=== PATIENT | male | born 1935 | race Native Hawaiian/Other Pacific Islander ===

== ENCOUNTER 2018-02-25 20:28 | Emergency (ER) | payer OTHER ==
[~2018-02-25] VITALS: Ht 188 cm; Wt 96.6 kg
[2018-02-25 20:51] LABS: PLATELET COUNT 259 K/uL (142-355)
[2018-02-25 20:56] LABS: POTASSIUM 4.3 mmol/L (3.6-5.2)
[2018-02-25 21:30] VITALS: BP 135/61; TEMP 98.3
[2018-02-26] MEDS ORDERED: ESCITALOPRAM5 MG PO (05:33)
[2018-02-26] MEDS ORDERED: NAMZARIC 28-101 CAP PO (05:39)
[2018-02-26] MEDS ORDERED: LOSA50TA PO (05:41)
[2018-02-26] MEDS ORDERED: AMLODIPINE BESYLATE PO (05:45)
[2018-02-26] MEDS ORDERED: QUET25TA2 PO (05:56)
[2018-02-26] MEDS ORDERED: PSYL0.52C PO (05:57)
[2018-02-26] MEDS ORDERED: TRADJENTA5 M1 PO (06:02)
[2018-02-26] MEDS ORDERED: OMEPRAZOLE20.6 MGDR PO (06:28)
[2018-02-26] MEDS ORDERED: NOVOLOG100 MG/ML SC (06:31)
[2018-02-26] MEDS ORDERED: LIPITOR40 MG PO (06:32)
[2018-02-26] MEDS ORDERED: GEMFIBROZIL PO (06:36)
[2018-02-26] MEDS ORDERED: METF500T PO (06:37)
[2018-02-26] MEDS ORDERED: GLIM2TAB PO (06:38)
[2018-02-26] MEDS ORDERED: CARV12.5 PO (06:48)
== END 2018-02-25 21:30 | disposition other institution (70) ==
LOC: ED 20:28
DX: Z04.6 Encounter for general psychiatric examination, requested by authority (principal); F31.89 Other bipolar disorder
CPT/HCPCS: 36415; 80053; 80307; 81000; 83735; 84100; 85027; 93005; 99285

== ENCOUNTER 2019-01-16 15:30 | Emergency (ER) | payer OTHER ==
[~2019-01-16] VITALS: Ht 188 cm; Wt 103.4 kg
[~2019-01-16 15:30] MED LIST: AMLODIPINE BESYLATE PO; CARV12.5 PO; ESCI10TA PO; ESCITALOPRAM5 MG PO; GEMFIBROZIL PO; GLIM2TAB PO; LIPITOR40 MG PO; LOSA50TA PO; METF500T PO; NAMZARIC 28-101 CAP PO; NOVOLOG100 MG/ML SC; OMEPRAZOLE20.6 MGDR PO; PSYL0.52C PO; QUET25TA2 PO; RISP1TAB PO; TRADJENTA5 M1 PO
[2019-01-16 16:09] LABS: PLATELET COUNT 261 K/uL (142-355)
[2019-01-16 16:34] LABS: POTASSIUM 3.8 mmol/L (3.6-5.2); SODIUM 142 mmol/L (136-145)
[2019-01-16 17:15] VITALS: BP 130/56; TEMP 97.8
[2019-01-16] MEDS ORDERED: TRADJENTA5 M1 PO (18:17)
[2019-01-16] MEDS ORDERED: FENOFIBRATE54 MG PO (18:18)
[2019-01-16] MEDS ORDERED: FINGERSTIX (18:20)
== END 2019-01-16 17:15 | disposition other institution (70) ==
LOC: ED 15:30
PROVIDERS: Emergency Medicine
DX: R46.89 Other symptoms and signs involving appearance and behavior (principal); D64.89 Other specified anemias; Z04.6 Encounter for general psychiatric examination, requested by authority
CPT/HCPCS: 80053; 81000; 85027; 93005; 99285